=== PATIENT | male | born 1975 | race Caucasian/White ===

== ENCOUNTER 2018-09-02 09:30 | Day surgery (SDC) | payer MEDICARE ==
[2018-08-29 15:16] VITALS: BMI 25.8
[2018-09-02] MEDS ORDERED: Midazolam HCl 2 mg/2 ml Vial ONE (10:17)
[2018-09-02] MEDS ORDERED: Fentanyl 100 MCG/2 ML VIAL ONE (10:39)
--- NOTE | 2018-09-02 13:11 | OP ---
DATE OF PROCEDURE: 09/02/2018 PROCEDURES PERFORMED: Colonoscopy with biopsy and polypectomy. INDICATION FOR PROCEDURE: Prior history of ileocolonic Crohn disease with a history of small bowel resection. DESCRIPTION OF PROCEDURE: After the risks and benefits of the procedure were explained to the patient including risk of bleeding, infection, perforation, reactions to anesthesia, aspiration, and/or pain, informed consent was obtained. The patient was then taken to the endoscopy suite, where deep sedation was administered via propofol and anesthesia support. Once adequate sedation was achieved, the standard colonoscope was introduced to the rectum after a digital rectal examination and advanced to the terminal ileum with mild difficulty requiring manual abdominal pressure in order to facilitate passage of the colonoscope. The quality of the prep was good to excellent with good visualization achieved. The patient tolerated the procedure well with no immediate perioperative complications. Upon conclusion of the procedure, all equipment was removed from the patient. The patient was transferred to Day Stay in satisfactory condition. FINDINGS: Digital rectal exam, normal. The terminal ileum was visualized up to 20 cm past the ileocolonic anastomosis. In this region, normal-appearing mucosa was seen with no evidence of erosions, ulcerations, mass, lesions, or active/recent bleeding. Multiple random biopsies were taken from the terminal ileum for evaluation of underlying pathology. An ileocolonic surgical anastomosis was seen at approximately 100 cm past the anal verge and was normal in appearance. He did not have any evidence of mucosal breakdown, erosions, ulcerations, mass, lesions, polyps, or active/recent bleeding. Normal-appearing mucosa was then seen in the remaining ascending and proximal transverse colons. Normal-appearing mucosa was then seen in the transverse and descending colons as well. Random biopsies were taken from the remaining ascending/transverse colon and placed in right colon biopsy jar. Random biopsies were taken in a 4-quadrant fashion within the transverse colon and placed in a separate jar. Random biopsies were also taken from the left colon in the descending and sigmoid colons in a 4-quadrant fashion placed in the separate jars well. A 4 to 5 mm sessile polyp was seen in the sigmoid colon and completely removed with hot snare polypectomy. It was retrieved and placed in its own specimen jar for evaluation. A 5 to 6 small mitchell-colored polyps were seen at the rectum at approximately 20 cm past the anal verge concerning for prior history of inflammatory pseudopolyps. However, the mucosa surrounding these polyps did not have any increased erythema, erosions, ulcerations, or any other abnormalities. Random biopsies were taken from a outside sales representative insurance sample of these polyps as well as from the surrounding mucosa for evaluation of possible inflammatory bowel disease. Otherwise, normal-appearing mucosa was seen from the anal verge up to 20 cm with the polyps only present at that particular site. On rectal retroflexion, small to medium-sized internal hemorrhoids were noted with increased hyperemia concerning for possible bleeding in the recent past. IMPRESSION: 1. Ileocolonic surgical anastomosis seen at 100 cm past the anal verge, that was normal in appearance with end-to-end anastomosis. 2. Normal-appearing mucosa seen in the distal ascending, transverse, and descending colons status post biopsies for surveillance. 3. A 4 to 5 mm sigmoid colon polyp was removed with hot snare polypectomy. 4. A few small polyps measuring 3 or 4 mm in size were seen in the colon at 20 cm without surrounding erythema or mucosal breakdown, but whose appearance were indicative of prior inflammatory bowel disease, now status post biopsies. 5. Small to medium-sized internal hemorrhoids. RECOMMENDATIONS: 1. We will follow up on biopsy results with further management of the patient's IBS and/or IBD based on biopsy results. 2. We would continue current medical management with dicyclomine and higher fiber diet. 3. We will have the patient follow up in the GI Clinic in 3 to 4 weeks for further evaluation. Job ID: [id number]
== END 2018-09-02 12:04 | disposition home or self-care (01) ==
LOC: SDC 09:30
PROVIDERS: ATTEND Internal Medicine
PROC: 0DBE8ZX Excision of Large Intestine, Via Natural or Artificial Opening Endoscopic, Diagnostic (ICD-10-PCS; principal; 2018-09-02)
PROC: 0DBN8ZX Excision of Sigmoid Colon, Via Natural or Artificial Opening Endoscopic, Diagnostic (ICD-10-PCS; 2018-09-02)
DX: K50.90 Crohn's disease, unspecified, without complications (principal); K63.5 Polyp of colon; K64.8 Other hemorrhoids; K21.9 Gastro-esophageal reflux disease without esophagitis; F41.9 Anxiety disorder, unspecified; M19.90 Unspecified osteoarthritis, unspecified site; F32.9 Major depressive disorder, single episode, unspecified; I10 Essential (primary) hypertension; D89.89 Other specified disorders involving the immune mechanism, not elsewhere classified; F99 Mental disorder, not otherwise specified; Z87.891 Personal history of nicotine dependence; Z79.899 Other long term (current) drug therapy; Z88.5 Allergy status to narcotic agent; Z91.041 Radiographic dye allergy status; Z90.49 Acquired absence of other specified parts of digestive tract; Z98.0 Intestinal bypass and anastomosis status
CPT/HCPCS: 88305; J2250; J3010